=== PATIENT | female | born 1975 | race African-American/Black ===

== ENCOUNTER 2018-05-20 12:46 | Emergency (ER) | payer MEDICAID ==
--- NOTE | 2018-05-20 13:34 | ER Document Report ---
ED Medical Screen (RME) - General Chief Complaint: Chest Pain Stated Complaint: COUGH Time Seen by Provider: 05/20/18 13:13 Notes: 43-year-old female to the emergency department chief complaint of cough, congestion and chest pain with intermittent palpitations. Patient states that she has SLE. Followed by doctors in [place]. Has been having worsening symptoms since moving down to this area. States that every now and then she gets a tight ness in her chest. Has had a stress test in the past which was normal. Has no other major medical problems other than the SLE. I have greeted and performed a rapid initial assessment of this patient. A comprehensive ED assessment and evaluation of the patient, analysis of test results and completion of the medical decision making process will be conducted by additional ED providers. TRAVEL OUTSIDE OF THE [place] IN LAST 30 DAYS: No - Related Data Allergies/Adverse Reactions: Penicillins Allergy (Verified 05/20/18 12:48) Sulfa (Sulfonamide Antibiotics) Allergy (Verified 05/20/18 12:49) Past Medical History Renal/ Medical History: Denies: Hx Peritoneal Dialysis Physical Exam - Vital signs Vitals: Temp Pulse Resp BP Pulse Ox 99.1 F 90 18 138/85 H 100 05/20/18 13:12 05/20/18 13:12 05/20/18 13:12 05/20/18 13:12 05/20/18 13:12 Course - Vital Signs Vital signs: Temp Pulse Resp BP Pulse Ox 99.1 F 90 18 138/85 H 100 05/20/18 13:12 05/20/18 13:12 05/20/18 13:12 05/20/18 13:12 05/20/18 13:12
--- NOTE | 2018-05-20 14:07 | RADIOLOGY REPORT (SQ) ---
EXAM DESCRIPTION: CHEST 2 VIEWS COMPLETED DATE/TIME: 05/20/2018 1:55 pm REASON FOR STUDY: sob COMPARISON: None. EXAM PARAMETERS: NUMBER OF VIEWS: two views TECHNIQUE: Digital Frontal and Lateral radiographic views of the chest acquired. RADIATION DOSE: NA LIMITATIONS: none FINDINGS: LUNGS AND PLEURA: No opacities, masses or pneumothorax. No pleural effusion. MEDIASTINUM AND HILAR STRUCTURES: No masses or contour abnormalities. HEART AND VASCULAR STRUCTURES: Heart normal size. No evidence for failure. BONES: No acute findings. HARDWARE: None in the chest. OTHER: No other significant finding. IMPRESSION: NO ACUTE RADIOGRAPHIC FINDING IN THE CHEST. TECHNICAL DOCUMENTATION: JOB ID: [id number] [employer]- All Rights Reserved Reading location - IP/workstation name: [email or web address]
[2018-05-20 16:20] LABS: ABSOLUTE BASOPHILS # (AUTO) 0.1 10^3/uL (0.0-0.2); ABSOLUTE EOSINOPHILS # (AUTO) 0.1 10^3/uL (0.0-0.6); ABSOLUTE LYMPHOCYTES (AUTO) 2.7 10^3/uL (0.5-4.7); ABSOLUTE MONOCYTES (AUTO) 0.6 10^3/uL (0.1-1.4); ABSOLUTE NEUT (AUTO) 2.5 10^3/uL (1.7-8.2); BASOPHILS % (AUTO) 0.9 % (0-2); EOSINOPHILS % (AUTO) 1.4 % (0-6); HEMATOCRIT 37.5 % (36.0-47.0); HEMOGLOBIN 12.9 g/dL (12.0-15.5); LYMPHOCYTES % (AUTO) 45.2 % (13-45); MEAN CORPUSCULAR HEMOGLOBIN 27.7 pg (27.0-33.4); MEAN CORPUSCULAR HGB CONC 34.4 g/dL (32.0-36.0); MEAN CORPUSCULAR VOLUME 80 fl (80-97); MONOCYTES % (AUTO) 9.8 % (3-13); PLATELET COUNT 151 10^3/uL (150-450); RED BLOOD COUNT 4.67 10^6/uL (3.72-5.28); RED CELL DISTRIBUTION WIDTH 14.5 % (11.5-14.0); SEGMENTED NEUTROPHILS % (AUTO) 42.7 % (42-78); TOTAL CELLS COUNTED % (AUTO) 100 %; WHITE BLOOD COUNT 5.9 10^3/uL (4.0-10.5)
[2018-05-20 16:46] LABS: NT PRO BNP 33 pg/mL (<125)
[2018-05-20 16:54] LABS: TROPONIN I < 0.012 ng/mL
[2018-05-20] MEDS ORDERED: ALBUTEROL SULFATE HFA (90 MCG/PUFF) 8 GM MDI (1 MDI/ER DISP) IH PRN (17:10)
--- NOTE | 2018-05-20 17:11 | ER Document Report ---
ED General - General Chief Complaint: Chest Pain Stated Complaint: COUGH Time Seen by Provider: 05/20/18 13:13 Mode of Arrival: Ambulatory Information source: Patient Notes: 43-year-old female with no reported past medical history presents with complaint of cough, shortness of breath, nasal congestion, sore throat that started 2 weeks prior to arrival. Patient describes the cough as persistent, productive and associated with subjective fevers. Patient has tried nmzu-yea-ynqywnc cough medicine without relief. Patient has had sick contacts with multiple children at home with similar symptoms. She did not receive a flu shot. She does not smoke. TRAVEL OUTSIDE OF THE [place] IN LAST 30 DAYS: No - HPI Onset: Other Onset/Duration: Persistent Quality of pain: Achy Severity: Mild Associated symptoms: Productive cough, Fever, Shortness of breath, Sore throat. denies: Chest pain, Hurts to breath, Leg swelling, Nausea, Vomiting Exacerbated by: Coughing Relieved by: Denies Similar symptoms previously: Yes Recently seen / treated by doctor: No - Related Data Allergies/Adverse Reactions: Penicillins Allergy (Verified 05/20/18 12:48) Sulfa (Sulfonamide Antibiotics) Allergy (Verified 05/20/18 12:49) Past Medical History - General Information source: Patient, [facility] - Social History Smoking Status: Never Smoker Frequency of alcohol use: None Drug Abuse: None Lives with: Family Family History: Reviewed & Not Pertinent Patient has suicidal ideation: No Patient has homicidal ideation: No - Medical History Medical History: Negative Renal/ Medical History: Denies: Hx Peritoneal Dialysis Review of Systems - Review of Systems Notes: REVIEW OF SYSTEMS: CONSTITUTIONAL : Denies fever Denies recent illness. Denies weight loss, recent hospitalizations. EENT: Denies visual changes, eye pain. Denies sore throat, oral lesions, difficulty swallowing. CARDIOVASCULAR: Denies chest pain. Denies lower extremity edema. RESPIRATORY: Denies wheezing. GASTROINTESTINAL: Denies abdominal pain or distention. Denies nausea, vomiting, or diarrhea. Denies blood in vomitus, stools, or per rectum. Denies black, tarry stools. Denies constipation. GENITOURINARY: Denies difficulty urinating, painful urination, frequency, blood in urine, or vaginal discharge. MUSCULOSKELETAL: Denies back or neck pain or stiffness. Denies joint pain or swelling. SKIN: Denies rash, lesions or sores. HEMATOLOGIC : Denies easy bruising or bleeding. LYMPHATIC: Denies swollen glands. NEUROLOGICAL: Denies confusion or altered mental status. Denies loss of consciousness. Denies dizziness or lightheadedness. Denies headache. Denies weakness or paralysis. Denies problems difficulty with ambulation, slurred speech. Denies sensory loss, numbness, or tingling. Denies seizures. PSYCHIATRIC: Denies anxiety or stress. Denies depression, suicidal ideation, or homicidal ideation. Denies visual or auditory hallucinations. Physical Exam - Vital signs Vitals: Temp Pulse Resp BP Pulse Ox 99.1 F 90 18 138/85 H 100 05/20/18 13:12 05/20/18 13:12 05/20/18 13:12 05/20/18 13:12 05/20/18 13:12 - Notes Notes: PHYSICAL EXAMINATION: GENERAL: Well-appearing, well-nourished and in no acute distress. HEAD: Atraumatic, normocephalic. EYES: Pupils equal round and reactive to light, extraocular movements intact, conjunctiva are normal. ENT: Nares patent, oropharynx clear without exudates. Moist mucous membranes. NECK: Normal range of motion, supple without lymphadenopathy LUNGS: Breath sounds clear to auscultation bilaterally and equal. No wheezes rales or rhonchi. No increased work of breathing, accessory muscle use. HEART: Regular rate and rhythm without murmurs ABDOMEN: Soft, nontender, nondistended abdomen. No guarding, no rebound. No masses appreciated. Female : deferred Musculoskeletal: Normal range of motion, no pitting or edema. No cyanosis. NEUROLOGICAL: Cranial nerves grossly intact. Normal speech, normal gait. Sarah Beth l sensory, motor exams PSYCH: Normal mood, normal affect. SKIN: Warm, Dry, normal turgor, no rashes or lesions noted. Course - Re-evaluation Re-evalutation: Laboratory 05/20/18 05/20/18 05/20/18 15:44 15:44 15:44 WBC 5.9 RBC 4.67 Hgb 12.9 Hct 37.5 MCV 80 MCH 27.7 MCHC 34.4 RDW 14.5 H Plt Count 151 Seg Neutrophils % 42.7 Lymphocytes % 45.2 H Monocytes % 9.8 Eosinophils % 1.4 Basophils % 0.9 Absolute Neutrophils 2.5 Absolute Lymphocytes 2.7 Absolute Monocytes 0.6 Absolute Eosinophils 0.1 Absolute Basophils 0.1 Sodium Cancelled Potassium Cancelled Chloride Cancelled Carbon Dioxide Cancelled Anion Gap Cancelled BUN Cancelled Creatinine Cancelled Est GFR ( Amer) Cancelled Est GFR (Non-Af Amer) Cancelled Glucose Cancelled Calcium Cancelled Total Bilirubin Cancelled Direct Bilirubin Cancelled Neonat Total Bilirubin Cancelled Neonat Direct Bilirubin Cancelled Neonat Indirect Bili Cancelled AST Cancelled ALT Cancelled Alkaline Phosphatase Cancelled Troponin I < 0.012 NT-Pro-B Natriuret Pep 33 Total Protein Cancelled Albumin Cancelled Chest X-Ray 05/20/18 13:29 IMPRESSION: NO ACUTE RADIOGRAPHIC FINDING IN THE CHEST. Temp Pulse Resp BP Pulse Ox 99.1 F 90 14 128/78 H 100 05/20/18 13:12 05/20/18 13:12 05/20/18 17:00 05/20/18 17:00 05/20/18 17:00 05/21/18 00:16 43-year-old female presented to the emergency department with complaints of cough, congestion, sore throat that has been ongoing for 2 weeks. Immediately upon my arrival into the room the nurse informed me that the patient wants to leave AGAINST MEDICAL ADVICE. I urged the patient to let me review her blood work and chest x-ray which I did immediately. 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 Because of the persistence of her cough, shortness of breath she was given an albuterol MDI and started on azithromycin. Patient urged to return if symptoms not improving. Presentation is most consistent with a viral upper respiratory infection. Patient is overall well appearance, vitals within normal limits, well-hydrated. Patient denies any headache, neck pain, and has no evidence of meningismus on examination. Lungs a re clear bilaterally. No evidence of respiratory distress. Based on clinical exam and history, I do not suspect an acute pneumonia, meningitis, strep pharyngitis, or an acute encephalitis. Chest x-ray was obtained and showed no evidence of pneumonia. - Vital Signs Vital signs: Temp Pulse Resp BP Pulse Ox 99.1 F 90 14 128/78 H 100 05/20/18 13:12 05/20/18 13:12 05/20/18 17:00 05/20/18 17:00 05/20/18 17:00 - Laboratory Result Diagrams: 05/20/18 15:44 05/20/18 15:44 Laboratory results interpreted by me: 05/20/18 15:44 RDW 14.5 H Lymphocytes % 45.2 H - Diagnostic Test Radiology reviewed: Image reviewed, Reports reviewed Discharge - Discharge Clinical Impression: Cough Upper respiratory infection Qualifiers: URI type: unspecified URI Qualified Code(s): J06.9 - Acute upper respiratory infection, unspecified Condition: Good Disposition: HOME, SELF-CARE Instructions: Upper Respiratory Illness ([facility]), Viral Syndrome ([facility]) Additional Instructions: Your symptoms are most likely due to a viral infection it should resolve over the next 7-14 days. You should take rips-afn-oudrbsz guanfacine per bottle instructions to help thin the mucus. For nasal congestion: I would recommend that you get aiws-kmo-pqlwwmg oxymetazoline also known is afrin. Use only per bottle instructions and be sure to never use this for more than 3 days if you can develop severe rebound congestion. You may also use tylenol or ibuprofen as needed for aches and thorat discomfort. Please be sure to drink plenty of fluids and get rest. Return to the emergency department he began having difficulty breathing, chest pain, persistent vomiting, or any other symptoms that are concerning to you. Prescriptions: Azithromycin [Zithromax 250 mg Tablet] 250 mg PO ASDIR PRN #6 tablet PRN Reason: Guaifenesin/Pseudoephedrne HCl [Mucinex D ER 600-60 mg Tablet] 1 each PO BID #14 tab.er.12h
[2018-05-20 17:27] VITALS: BP 128/78
--- NOTE | 2018-05-20 19:18 | EKG REPORT ---
SEVERITY:- ABNORMAL ECG - SINUS RHYTHM NONSPECIFIC T ABNORMALITIES, INFERIOR LEADS : Confirmed by: Fidleia Julien MD 20-May-2018 19:17:03
== END 2018-05-20 17:27 | disposition home or self-care (01) ==
LOC: ER 12:46
DX: J06.9 Acute upper respiratory infection, unspecified (principal); R05 Cough; R06.02 Shortness of breath; R09.81 Nasal congestion; J02.9 Acute pharyngitis, unspecified; Z88.0 Allergy status to penicillin; Z88.2 Allergy status to sulfonamides
CPT/HCPCS: 93005; 99284; 36415; 85025; 84484; 83880; 71046; 93010; J3490

== ENCOUNTER → 2018-10-12 | Outpatient (CLI) | payer MEDICAID ==
--- NOTE | 2018-10-12 17:29 | RADIOLOGY REPORT (SQ) ---
EXAM DESCRIPTION: MRI RT UPPER JOINT WITHOUT COMPLETED DATE/TIME: 10/12/2018 11:50 am REASON FOR STUDY: PAIN IN RIGHT SHOULDER (M25.511) M25.512 PAIN IN LEFT SHOULDER M25.511 PAIN IN R IGHT SHOULDER COMPARISON: None. TECHNIQUE: Right shoulder images acquired and stored on PACS. Multiplanar imaging to include fat sen sitive sequences such as T1, water sensitive sequences such as FST2/STIR, cartilage sensitive sequenc es such as FSPD/gradient-echo sequences. LIMITATIONS: Motion artifact is up to moderate on some sequences. FINDINGS: BONE MARROW AND CORTEX: No worrisome bone lesions or marrow replacement. No occult fractur es. JOINT OR BURSAL EFFUSION: Mild effusion. Mild bursitis. GLENO-HUMERAL ARTICULATION: No subluxation or dislocation. No focal chondral lesions. ACROMION AND AC JOINT: Mild AC arthropathy with predominantly dorsal overgrowth. ROTATOR CUFF AND INTERVAL: The cuff is generally intact without evidence of high-grade partial or ful l-thickness tear. No overt atrophy. No rotator interval tear. No rotator interval thickening to suggest adhesive capsulitis. LABRUM AND BICEPS LABRAL COMPLEX: No gross labral tear or biceps disruption/displacement. REMAINDER OF LABRUM AND IGHL : No gross tear or paralabral cyst formation. Labral evaluation is less than optimal without joint distention. No thickening of IGHL to suggest adhesive capsulitis. PERIARTICULAR AND ADJACENT SOFT TISSUES: No worrisome regional mass. Mild axillary adenopathy is sug gested. OTHER: No other significant finding. IMPRESSION: 1. Joint effusion and mild bursitis. 2. No suggestion of significant rotator cuff tear. TECHNICAL DOCUMENTATION: JOB ID: [id number] [email or web address]- All Rights Reserved Reading location - IP/workstation name: [email or web address]-
== END ==
LOC: RAD 10:39
PROVIDERS: ATTEND Physician Assistant
DX: M25.512 Pain in left shoulder (principal); M25.511 Pain in right shoulder

== ENCOUNTER → 2018-10-16 | Outpatient (CLI) | payer MEDICAID ==
--- NOTE | 2018-10-16 11:24 | RADIOLOGY REPORT (SQ) ---
EXAM DESCRIPTION: MRI LT UPPER JOINT WITHOUT COMPLETED DATE/TIME: 10/16/2018 8:45 am REASON FOR STUDY: M25.512 PAIN IN LEFT SHOULDER M25.512 PAIN IN LEFT SHOULDER COMPARISON: None. TECHNIQUE: Left shoulder images acquired and stored on PACS. Multiplanar imaging to include fat sens itive sequences such as T1, water sensitive sequences such as FST2/STIR, cartilage sensitive sequence s such as FSPD/gradient-echo sequences. LIMITATIONS: None. FINDINGS: BONE MARROW AND CORTEX: Several small subcortical cysts are present along the posterior le ft humeral head greater tuberosity best shown on sagittal image 5 JOINT OR BURSAL EFFUSION: No glenohumeral joint effusion. Trace fluid in the subacromial/subdeltoid bursa GLENO-HUMERAL ARTICULATION: Normal articulation. No subluxation. No cystic change. No osteophytes or cartilage loss. ACROMION AND AC JOINT: Type 2 acromion with bulky acromioclavicular joint hypertrophy, synovial thick ening, mild bony spurring. There is mild narrowing of the subacromial space on sagittal image 11. ROTATOR CUFF AND INTERVAL: Mild tendinopathy along the anterior half of the supraspinatus tendon with thickening and increased intrinsic signal. Mild tendinopathy along the undersurface of the distal i nfraspinatus tendon with increased signal. No full-thickness tear. subscapularis is intact No rotator interval tear. No rotator interval thickening to suggest adhesive capsulitis. LABRUM AND BICEPS LABRAL COMPLEX: Intact. No labral tear. Intra-articular long-head biceps tendon n ormal. Distal biceps in normal location in bicipital groove. REMAINDER OF LABRUM AND IGHL : No gross tear or paralabral cyst formation. Labral evaluation is less than optimal without joint distention. No thickening of IGHL to suggest adhesive capsulitis. PERIARTICULAR AND ADJACENT SOFT TISSUES: No masses or abnormal nodes. OTHER: No other significant finding. IMPRESSION: Acromioclavicular joint hypertrophy with trace fluid in the subacromial/subdeltoid bursa and mild narrowing of the subacromial space Supra and infraspinatus tendinopathy without full-thickness tear. TECHNICAL DOCUMENTATION: JOB ID: [id number] [email or web address]- All Rights Reserved Reading location - IP/workstation name: [email or web address]
== END ==
LOC: RAD 08:00
PROVIDERS: ATTEND Physician Assistant
DX: M25.512 Pain in left shoulder (principal)

== ENCOUNTER → 2019-07-08 | Outpatient (CLI) | payer MEDICAID ==
[2019-07-08 13:42] LABS: C-REACTIVE PROTEIN 5.2 mg/L (<10.0)
== END ==
LOC: OD 12:36
PROVIDERS: ATTEND Physician Assistant
DX: M25.50 Pain in unspecified joint (principal)
CPT/HCPCS: 36415; 86038; 86140; 86431